=== PATIENT | female | born 1990 | race Asian ===

== ENCOUNTER 2020-08-27 21:14 | Emergency (ER) | payer MEDICAID, OTHER ==
[~2020-08-27] VITALS: Ht 157.5 cm; Wt 81.6 kg
[2020-08-27 21:29] VITALS: BP 123/74
== END 2020-08-28 00:01 | disposition home or self-care (01) ==
LOC: ER 21:17
DX: S43.402A Unspecified sprain of left shoulder joint, initial encounter (principal); S53.402A Unspecified sprain of left elbow, initial encounter; S63.502A Unspecified sprain of left wrist, initial encounter; S73.102A Unspecified sprain of left hip, initial encounter; S83.92XA Sprain of unspecified site of left knee, initial encounter; E66.8 Other obesity; Z32.02 Encounter for pregnancy test, result negative; Z68.32 Body mass index [BMI] 32.0-32.9, adult; V43.52XA Car driver injured in collision with other type car in traffic accident, initial encounter; Y93.89 Activity, other specified; Y92.488 Other paved roadways as the place of occurrence of the external cause; Y99.8 Other external cause status
CPT/HCPCS: 73030; 73080; 73110; 73502; 73562; 81025

== ENCOUNTER 2024-02-25 17:26 | Emergency (ER) | payer MEDICAID, OTHER ==
[~2024-02-25] VITALS: Ht 157.5 cm; Wt 81.0 kg
[2024-02-25 18:19] LABS: Urine Bacteria None Seen /hpf (None Seen)
[2024-02-25 18:32] LABS: Urine Blood Negative /uL (Negative); Urine Clarity Clear (Clear); Urine Color Light-Yellow (Yellow); Urine Protein, UAD Negative (Negative); Urine Specific Gravity 1.025 (1.001-1.035); Urine Squamous Epithelial Cell FEW /hpf (<5); Urine Urobilinogen Normal (Negative); Urine WBC 1 /hpf (0 - 5); Urine pH 7.5 (5.0-9.0)
[2024-02-25 20:52] VITALS: BP 103/56; PULSE 66; RESP 19; TEMP 98.7; O2SAT 99
[2024-02-25 20:58] LABS: Basophils # (auto) 0.1 10 ^3/uL (0-0.2); Basophils % (auto) 1.1 % (0.0-2.0); Monocytes # (auto) 0.8 10 ^3/uL (0-1.3)
[2024-02-25 21:00] LABS: Eosinophils # (auto) 0.2 10 ^3/uL (0-0.8); Eosinophils % (auto) 1.6 % (0.0-7.0); Hematocrit 38.8 % (36.0-46.0); Hemoglobin 12.9 g/dL (12.2-16.2); Mean Corpuscular Hemoglobin 25.7 pg (28.0-32.0); Mean Corpuscular Hgb Conc. 33.1 g/dL (32.0-36.0); Mean Corpuscular Volume 77.5 fL (80.0-100.0); Monocytes % (auto) 8.4 % (0.0-12.0); Neutrophils # (auto) 4.7 10 ^3/uL (1.6-8.6); Neutrophils % (auto) 47.9 % (37.0-80.0); Platelet Count (auto) 344 10^3/uL (140-450); Red Blood Cells 5.01 10^6/uL (4.0-5.20); Red Cell Distribution Width 13.6 % (11.8-14.3); White Blood Cell 9.9 10^3/uL (4.4-10.8)
[2024-02-25 21:16] LABS: Alanine Aminotransferase 23 U/L (7-40); Albumin 4.2 g/dL (3.2-4.8); Alkaline Phosphatase 46 U/L (46-116); Anion Gap 6 (5-15); Aspartate Aminotransferase 14 U/L (13-40); BUN/Creatinine Ratio 11.6 (10.0-20.0); Bilirubin, Total 0.2 mg/dL (0.2-1.0); Blood Urea Nitrogen 8 mg/dL (9-23); Calcium 9.6 mg/dL (8.7-10.4); Carbon Dioxide 24 mmol/L (20-31); Chloride 106 mmol/L (98-107); Glucose 93 mg/dL (74-106); Potassium 4.2 mmol/L (3.5-5.1); Sodium 136 mmol/L (136-145)
--- NOTE | 2024-02-25 21:41 | ED.PDOC ---
HPI (NEURO) HPI Comments This is a 33-year-old female presents to the ED chief complaint vaginal spotting. States earlier today she had a light bright red blood vaginal spotting without clots and light abdominal cramping which has resolved. States she is but is unsure how far along she is. She denies gross vaginal bleeding, clots, severe abdominal pain, low back pain, dysuria, or urinary complaints. Chief Complaint: Time Seen by MD: 18:17 Reviewed Notes: Nurses Notes, Medications, Allergies Information Source: Patient Mode of Arrival: Ambulatory Past Medical History PAST MEDICAL HISTORY: Denies Surgical History: Denies all surgeries [employer] History: No Pertinent [employer]ER [employer] History Family History Family History: Reviewed,noncontributory to illness, No family hx of Cancer, No family hx of DM, No family hx of Heart coni, No family hx of HTN, No family hx ofKidney coni, No family hx of Liver coni, No family hx of Lung coni, No family hx of Stroke Social History Smoker: Non-Smoker Alcohol: Denies ETOH Use Drugs: Denies Drug Use Lives In: Home Constitutional: denies: chills, diaphoresis, fatigue, fever, malaise, sweats, weakness, others EENTM: denies: blurred vision, double vision, ear bleeding, ear discharge, ear drainage, ear pain, ear ringing, eye pain, eye redness, hearing loss, mouth pain, mouth swelling, nasal discharge, nose bleeding, nose congestion, nose pain , photophobia, tearing, throat pain, throat swelling, voice changes, others Respiratory: denies: cough, hemoptysis, orthopnea, SOB at rest, shortness of breath, SOB with excertion, stridor, wheezing, others Cardiovascular: denies: chest pain, dizzy spells, diaphoresis, Dyspnea on exertion, edema, irregular heart beat, left arm pain, lightheadedness, palpitations, PND, syncope, others Gastrointestinal: denies: abdomen distended, abdominal pain, blood streaked bowels, constipated, diarrhea, dysphagia, difficulty swallowing, hematemesis, melena, nausea, poor appetite, poor fluid intake, rectal bleeding, rectal pain, vomiting, others Genitourinary: reports: others (Vaginal spotting); denies: abnormal vagina bleeding, burning, dyspareunia, dysuria, flank pain, frequency, hematuria, incontinence, pain, , vagina discharge, urgency Neurological: denies: dizziness, fainting, headache, left sided numbness, left sided weakness, numbness, paresthesia, pre-existing deficit, right sided numbness, right sided weakness, seizure, speech problems, tingling, tremors, weakness, others Musculoskeletal: denies: back pain, gout, joint pain, joint swelling, muscle pain, muscle stiffness, neck pain, others Integumetry: denies: bruises, change in color, change in hair/nails, dryness, laceration, lesions, lumps, rash, wounds, others Allergic/Immunocompromised: denies: Difficulty Healing, Frequent Infections, Hives, Itching, others Hematologic/Lymphatic: denies: anemia, blood clots, easy bleeding, easy bruising, swollen glands, others Endocrine: denies: excessive hunger, excessive sweating, excessive thirst, excessive urination, flushing, intolerance to cold, intolerance to heat, unexplained weight gain, unexplained weight loss, others Psychiatric: denies: anxiety, bipolar disorder, depression, hopeless, panic disorder, schizophrenia, sleepless, suicidal, others Physical Exam General Appearance: No Apparent Distress, Normal HEENT: Normal ENT Inspection, Pharynx Normal, TMs Normal Neck: Full Range of Motion, Non-Tender, Normal, Normal Inspection Respiratory: Chest Non-Tender, Lungs Clear, No Accessory Muscle Use, No Respiratory Distress, Normal Breath Sounds Cardiovascular: No Edema, No JVD, No Murmur, No Gallop, Normal Peripheral Pulses, Regular Rate/Rhythm Breast Exam: Deferred Gastrointestinal: No Organomegaly, Non Tender, No Pulsatile Mass, Normal Bowel Sounds, Soft Genitalia: Deferred Pelvic: Deferred Rectal: Deferred Extremities: No calf tenderness, Normal capillary refill, Normal inspection, Normal range of motion, Non-tender, No pedal edema Musculoskeletal : Apperance: Normal Neurologic: Alert, senior java j2ee developer II-XII nml as Tested, No Motor Deficits, Normal Affect, Normal Mood, No Sensory Deficits Cerebellar Function: Normal Reflexes: Normal Skin: Dry, Normal Color, Warm Lymphatic: No Adenopathy Was a procedure done? Was a procedure done?: No Differential Diagnosis (SZ) Headache: N/A (Threatened miscarriage) X-Ray, Labs, Meds, VS Vital Signs Date Time Temp Pulse Resp B/P (MAP) Pulse Ox O2 Delivery O2 Flow Rate FiO2 02/25/24 20:52 66 19 99 Room Air 02/25/24 20:52 98.7 66 19 103/56 (72) 99 98.7 02/25/24 18:28 98.6 78 20 121/77 (92) 8 Lab Test 02/25/24 20:44 02/25/24 00:00 Range/Units White Blood Count 9.9 4.4-10.8 10^3/uL Red Blood Count 5.01 4.0-5.20 10^6/uL Hemoglobin 12.9 12.2-16.2 g/dL Hematocrit 38.8 36.0-46.0 % Mean Corpuscular Volume 77.5 L 80.0-100.0 fL Mean Corpuscular Hemoglobin 25.7 L 28.0-32.0 pg Mean Corpuscular Hemoglobin Concent 33.1 32.0-36.0 g/dL Red Cell Distribution Width 13.6 11.8-14.3 % Platelet Count 344 140-450 10^3/uL Mean Platelet Volume 6.9 6.9-10.8 fL Neutrophils (%) (Auto) 47.9 37.0-80.0 % Lymphocytes (%) (Auto) 41.0 10.0-50.0 % Monocytes (%) (Auto) 8.4 0.0-12.0 % Eosinophils (%) (Auto) 1.6 0.0-7.0 % Basophils (%) (Auto) 1.1 0.0-2.0 % Neutrophils # (Auto) 4.7 1.6-8.6 10 ^3/uL Lymphocytes # (Auto) 4.0 0.4-5.4 10 ^3/uL Monocytes # (Auto) 0.8 0-1.3 10 ^3/uL Eosinophils # (Auto) 0.2 0-0.8 10 ^3/uL Basophils # (Auto) 0.1 0-0.2 10 ^3/uL Nucleated Red Blood Cells 0.0 % Sodium Level 136 136-145 mmol/L Potassium Level 4.2 3.5-5.1 mmol/L Chloride Level 106 98-107 mmol/L Carbon Dioxide Level 24 20-31 mmol/L Anion Gap 6 5-15 Blood Urea Nitrogen 8 L 9-23 mg/dL Creatinine 0.69 0.550-1.02 mg/dL Glomerular Filtration Rate Calc 116 >90 mL/min BUN/Creatinine Ratio 11.6 10.0-20.0 Serum Glucose 93 74-106 mg/dL Calcium Level 9.6 8.7-10.4 mg/dL Total Bilirubin 0.2 0.2-1.0 mg/dL Aspartate Amino Transferase (AST) 14 13-40 U/L Alanine Aminotransferase (ALT) 23 7-40 U/L Alkaline Phosphatase 46 46-116 U/L Total Protein 7.0 5.7-8.2 g/dL Albumin 4.2 3.2-4.8 g/dL Beta HCG, Quantitative 78986.6 H 1.5-4.2 mIU/mL Urine Color Light-yellow Yellow Urine Clarity Clear Clear Urine pH 7.5 5.0-9.0 Urine Specific [place] 1.025 1.001-1.035 Urine Protein Negative Negative Urine Ketones Negative Negative Urine Blood Negative Negative /uL Urine Nitrite Negative Negative Urine Bilirubin Negative Negative Urine Urobilinogen Normal Negative mg/dL Urine Leukocyte Esterase Negative Negative /uL Urine RBC 3 0 - 4 /hpf Urine WBC 1 0 - 5 /hpf Urine Squamous Epithelial Cells Few <5 /hpf Urine Bacteria None seen None Seen /hpf Urine Glucose Normal Normal mg/dL X-Ray, Labs, Meds, VS Comment OB US correlates with beta HCG. UA within normal limits no signs of infection. Denies vaginal bleeding and spotting at this time. CBC and CMP within normal limits no abnormal findings. Went to F8 to discusse results patient was not in the room and eloped. Triage, outside And bathrooms checked no answer. IMPRESSION: IUP single live fetus 7 weeks 0 days AUA corresponding to an DAPHNE of October 13, 2024. No acute abnormality detected. Time of 1ST Reevaluation: 00:10 Reevaluation 1ST: N/A Patient Education/Counseling: Diagnosis, Treatment, Prognosis, Need For Follow Up Family Education/Counseling: Diagnosis, Treatment, Prognosis, Need For Follow Up Departure 1 Departure Time of Disposition: 21:40 Impression: Primary Impression: Normal in first trimester Disposition: LEFT AWOL/ELOPED Condition: Stable Discharged With: Other (Daughter) Critical Care Note Critical Care Time?: No Stability Stability form required: ROSEANNA Araiza Feb 25, 2024 21:41
--- NOTE | 2024-02-25 23:57 | DVH ---
OB ULTRASOUND <14 WEEKS: HISTORY: vaginal bleed and cramping TECHNIQUE: Multiple real-time grayscale sonographic images of the pelvis with duplex Doppler color f low, spectral and M-mode analysis. TRANSDUCERS: Transabdominal FINDINGS: The uterus measures 12.2 x 7.2 x 5.7 cm. Nabothian cyst measuring 1.3 cm. Right ovary measures 3.0 x 2.1 x 4.0 cm with normal Doppler color flow Left ovary measures 3.6 x 2.4 x 3.3 cm with normal Doppler color flow Bilateral follicular cysts measuring up to 1.7 cm. IUP single live fetus at 7 weeks 0 days average ultrasound age based on mean crown-rump length of 0.9 cm and gestational sac size of 2.3 cm heart rate of 124 beats per minute. Yolk sac is visualized. IMPRESSION: IUP single live fetus 7 weeks 0 days AUA corresponding to an DAPHNE of October 13, 2024. No acute abnormality detected.
== END 2024-02-25 23:45 | disposition left against medical advice (07) ==
LOC: ER 17:31
DX: O20.9 Hemorrhage in early pregnancy, unspecified (principal); R10.2 Pelvic and perineal pain; Z3A.01 Less than 8 weeks gestation of pregnancy
CPT/HCPCS: 36415; 76801; 76817; 80053; 81001; 84702; 85025